=== PATIENT | female | born 1985 | race Caucasian/White ===

== ENCOUNTER 2022-01-06 20:35 | Emergency (ER) | payer MEDICAID, OTHER ==
[~2022-01-06] VITALS: Ht 172.7 cm; Wt 72.0 kg
[2022-01-06 21:26] VITALS: BP 137/78
[2022-01-06] MEDS ORDERED: LORazepam 0.5 MG TAB PO ONE (21:30)
[2022-01-06] MEDS ORDERED: LORA0.5T20 PO (22:31)
== END 2022-01-06 22:51 | disposition home or self-care (01) ==
LOC: ER 20:38
DX: F41.9 Anxiety disorder, unspecified (principal); Z90.710 Acquired absence of both cervix and uterus